=== PATIENT | male | born 1990 | race Two or more races ===

== ENCOUNTER 2020-02-14 21:19 | Emergency (ER) | payer OTHER ==
--- NOTE | 2020-02-14 22:02 | ER Document Report ---
HPI - HPI Patient complains to provider of: Shortness of breath Time Seen by Provider: 02/14/20 21:35 Onset: This afternoon Onset/Duration: Sudden Quality of pain: No pain Pain Level: Denies Context: 29-year-old male with no prior history presents emergency department with complaints of feeling short of breath. Patient reports he has had 2 episodes of shortness of breath in the past month. He reports he had been exercising both times. The first time he was exercising. The second time, today, he was jogging. Denies chest pain. Reports some left lower rib pain that went away. He reports he feels like he is still a little short of breath. Denies fever vomiting diarrhea. Reports [place] Denies COVID exposure. Denies recent trip. Denies history of CAD,PE or DVTs. Reports even though he felt short of breath while running today he did not stop he kept running. Denies family history of CAD. Associated Symptoms: Shortness of breath Exacerbated by: Other - exercising Similar symptoms previously: No Recently seen / treated by doctor: No Past Medical History - General Information source: Patient - Social History Smoking Status: Never Smoker Chew tobacco use (# tins/day): No Smoking Education Provided: No Frequency of alcohol use: Social Drug Abuse: None Occupation: CONTRACTOR Family History: None. denies: CAD Patient has suicidal ideation: No Patient has homicidal ideation: No - Medical History Medical History: Negative Surgical Hx: Negative Vertical Provider Document - CONSTITUTIONAL Agree With Documented VS: Yes Exam Limitations: No Limitations General Appearance: WD/WN, No Apparent Distress - HEENT HEENT: Atraumatic, Normocephalic - NECK Neck: Normal Inspection, Supple - RESPIRATORY Respiratory: Breath Sounds Normal, No Respiratory Distress - CARDIOVASCULAR Cardiovascular: Regular Rate, Regular Rhythm - GI/ABDOMEN Gastrointestinal: Abdomen Soft, Abdomen Non-Tender - MUSCULOSKELETAL/EXTREMETIES Musculoskeletal/Extremeties: TOO LUNDY - NEURO Level of Consciousness: Awake, Alert, Appropriate Motor/Sensory: No Motor Deficit - DERM Integumentary: Warm, Dry Course - Re-evaluation Re-evalutation: 02/14/20 22:01 29-year-old male presents with complaints of feeling short of breath with exercising. He denies chest pain. Denies covert exposure. Denies fever vomiting diarrhea. Patient is talking in a clear voice, respiratory rate even unlabored no retractions. - Vital Signs Vital signs: Temp Pulse Resp BP Pulse Ox 98.7 F 108 H 20 161/90 H 97 02/14/20 21:49 02/14/20 21:30 02/14/20 21:30 02/14/20 21:30 02/14/20 21:30 Discharge - Discharge Clinical Impression: Shortness of breath Condition: Stable Disposition: HOME, SELF-CARE Instructions: Family Physicians / Practices Additional Instructions: *You have been evaluated for shortness of breath *Monitor your symptoms *Follow up with a primary care provider within 1 week for recheck *Return to ED for difficulty breathing, chest pain, worsening symptoms, concerns Monitor your blood pressure. Your blood pressure was elevated today. This may be because you were anxious, in pain or because you need medication. It is important to follow up with your primary care provider for full evaluation. Forms: Elevated Blood Pressure
--- NOTE | 2020-02-14 23:20 | RADIOLOGY REPORT (SQ) ---
XR CHEST 1 VIEW EXAM DATE: 02/14/2020 9:50 PM CDT HISTORY: Shortness of breath. COMPARISON: None. FINDINGS: The heart size is within normal limits. There is no pulmonary vascular congestion. No consolidation, pleural effusion, or pneumothorax is seen. The bony structures are intact. IMPRESSION: No evidence of acute cardiopulmonary disease.
--- NOTE | 2020-02-14 23:32 | ER Document Report ---
ED Medical Screen (RME) - General Chief Complaint: Shortness Of Breath Stated Complaint: SHORTNESS OF BREATH Time Seen by Provider: 02/14/20 21:35 Mode of Arrival: Ambulatory Information source: Patient Notes: 29-year-old male with no prior history presents emergency department with complaints of feeling short of breath. Patient reports he has had 2 episodes of shortness of breath in the past month. He reports he had been exercising both times. The first time he was exercising. The second time, today, he was jogging. Denies chest pain. Reports some left lower rib pain that went away. He reports he feels like he is still a little short of breath. Denies fever vomiting diarrhea. Reports he works as a [place]. Denies COVID exposure. Denies recent trip. Denies history of CAD,PE or DVTs. Reports even though he felt short of breath while running today he did not stop he kept running. Denies family history of CAD. Patient ambulated without any problems. EKG shows sinus rhythm left fascicular block. Discussed with Dr. beatty who advised labs d-dimer CK troponin. Patient updated on plan of care. I have greeted and performed a rapid initial assessment of this patient. A comprehensive ED assessment and evaluation of the patient, analysis of test results and completion of the medical decision making process will be conducted by additional ED providers. - Related Data Allergies/Adverse Reactions: No Known Allergies Allergy (Unverified 02/14/20 22:07) Past Medical History - Social History Chew tobacco use (# tins/day): No Frequency of alcohol use: Social Drug Abuse: None Surgical Hx: Negative Past Surgical History: Reports: Hx Tonsillectomy Physical Exam - Vital signs Vitals: Temp Pulse Resp BP Pulse Ox 98.2 F 108 H 20 161/90 H 97 02/14/20 21:30 02/14/20 21:30 02/14/20 21:30 02/14/20 21:30 02/14/20 21:30 Course - Vital Signs Vital signs: Temp Pulse Resp BP Pulse Ox 98.7 F 108 H 20 161/90 H 97 02/14/20 21:49 02/14/20 21:30 02/14/20 21:30 02/14/20 21:30 02/14/20 21:30 Doctor's Discharge - Discharge Clinical Impression: Shortness of breath Condition: Stable Disposition: HOME, SELF-CARE Instructions: Family Physicians / Practices Additional Instructions: *You have been evaluated for shortness of breath *Monitor your symptoms *Follow up with a primary care provider within 1 week for recheck *Return to ED for difficulty breathing, chest pain, worsening symptoms, concerns Monitor your blood pressure. Your blood pressure was elevated today. This may be because you were anxious, in pain or because you need medication. It is important to follow up with your primary care provider for full evaluation. Forms: Elevated Blood Pressure
[2020-02-14 23:54] LABS: ABSOLUTE BASOPHILS # (AUTO) 0.1 10^3/uL (0.0-0.2); ABSOLUTE EOSINOPHILS # (AUTO) 0.1 10^3/uL (0.0-0.6); ABSOLUTE LYMPHOCYTES (AUTO) 2.3 10^3/uL (0.5-4.7); ABSOLUTE MONOCYTES (AUTO) 0.6 10^3/uL (0.1-1.4); ABSOLUTE NEUT (AUTO) 6.4 10^3/uL (1.7-8.2); BASOPHILS % (AUTO) 0.8 % (0-2); EOSINOPHILS % (AUTO) 0.6 % (0-6); HEMATOCRIT 46.8 % (37.9-51.0); HEMOGLOBIN 16.5 g/dL (13.5-17.0); LYMPHOCYTES % (AUTO) 24.3 % (13-45); MEAN CORPUSCULAR HEMOGLOBIN 30.7 pg (27.0-33.4); MEAN CORPUSCULAR HGB CONC 35.3 g/dL (32.0-36.0); MEAN CORPUSCULAR VOLUME 87 fl (80-97); MONOCYTES % (AUTO) 6.7 % (3-13); PLATELET COUNT 281 10^3/uL (150-450); RED BLOOD COUNT 5.38 10^6/uL (4.35-5.55); RED CELL DISTRIBUTION WIDTH 13.4 % (11.5-14.0); SEGMENTED NEUTROPHILS % (AUTO) 67.6 % (42-78); TOTAL CELLS COUNTED % (AUTO) 100 %; WHITE BLOOD COUNT 9.5 10^3/uL (4.0-10.5)
[2020-02-14 23:58] LABS: APPEARANCE,URINE CLEAR; BILIRUBIN,URINE NEGATIVE (NEGATIVE); COLOR,URINE YELLOW; GLUCOSE, URINE NEGATIVE (NEGATIVE); KETONES,URINE NEGATIVE (NEGATIVE); LEUKOCYTE ESTERASE,URINE NEGATIVE (NEGATIVE); NITRITE,URINE NEGATIVE (NEGATIVE); PROTEIN,URINE NEGATIVE (NEGATIVE); URINE SPECIFIC GRAVITY 1.016; UROBILINOGEN,URINE NEGATIVE mg/dL (<2.0)
[2020-02-15 00:11] LABS: URINE AMPHETAMINES SCREEN NEGATIVE; URINE BARBITURATES SCREEN NEGATIVE; URINE BENZODIAZEPINES SCREEN NEGATIVE; URINE COCAINE SCREEN NEGATIVE; URINE MARIJUANA (THC) SCREEN NEGATIVE; URINE METHADONE SCREEN NEGATIVE; URINE PHENCYCLIDINE SCREEN NEGATIVE
[2020-02-15 00:13] LABS: ALKALINE PHOSPHATASE 81 U/L (38-126); ANION GAP 8 (5-19); ASPARTATE AMINO TRANSFERASE 41 U/L (17-59); BILIRUBIN,TOTAL 0.5 mg/dL (0.2-1.3); BLOOD UREA NITROGEN 16 mg/dL (7-20); CALCIUM 10.2 mg/dL (8.4-10.2); CARBON DIOXIDE 29 mmol/L (22-30); CHLORIDE 99 mmol/L (98-107); CREATINE KINASE 266 U/L (55-170); GLUCOSE 114 mg/dL (75-110); POTASSIUM 4.8 mmol/L (3.6-5.0); TOTAL PROTEIN 8.5 g/dL (6.3-8.2)
--- NOTE | 2020-02-15 00:30 | ER Document Report ---
ED General - General Chief Complaint: Shortness Of Breath Stated Complaint: SHORTNESS OF BREATH Time Seen by Provider: 02/14/20 21:35 Mode of Arrival: Ambulatory Notes: Patient is a 29-year-old male that comes emergency department for chief complaint of sensation of difficulty breathing. He states that he has had 2 se parate episodes of this over the past several weeks, both times were when he was exercising. He states that he was actually jogging when he felt the sensation earlier. He states he also felt some discomfort in his left lower rib area that resolved. He states he still intermittently feels slightly short of breath although he denies shortness of breath on my evaluation. He denies any current chest pain. Symptoms happened earlier in the afternoon. Patient denies dizziness, nausea, vomiting, cough, congestion, sore throat, fever, recent travel or surgery, recent sick contacts. He denies personal or family history other than being told on previous family care visit that he had elevated blood pressure. Patient also states that he is trying to lose weight, he does have some obesity. He denies smoking, recreational drugs, or any daily medications. - Related Data Allergies/Adverse Reactions: No Known Allergies Allergy (Unverified 02/14/20 22:07) Past Medical History - General Information source: Patient - Social History Smoking Status: Never Smoker Chew tobacco use (# tins/day): No Frequency of alcohol use: Social Drug Abuse: None Lives with: Family Family History: Reviewed & Not Pertinent Patient has homicidal ideation: No Surgical Hx: Negative Past Surgical History: Reports: Hx Tonsillectomy - Immunizations Hx Diphtheria, Pertussis, Tetanus Vaccination: Yes Physical Exam - Vital signs Vitals: Temp Pulse Resp BP Pulse Ox 98.2 F 108 H 20 161/90 H 97 02/14/20 21:30 02/14/20 21:30 02/14/20 21:30 02/14/20 21:30 02/14/20 21:30 Course - Re-evaluation Re-evalutation: On my exam patient has no symptoms. Symptoms have been going on intermittently and more than 8 hours ago at this time, troponin is negative, CBC unremarkable, chemistry nonspecific, d-dimer is negative. Urine and urine drug screen unremarkable. EKG does show left axis deviation, blood pressure is elevated here especially initially when patient was more anxious. Patient has never been on blood pressure medication and does not routinely check his blood pressure, he has no idea what is average blood pressure is. I have very low suspicion of ACS, heart score is less than 3. Patient states that he was very anxious and felt like he needed to get checked out, however he states that now he would like to be discharged. Patient states that he can follow-up with his primary care easily at any time, plan is for patient to check his blood pressure daily, record this, see primary care, he will be referred to cardiology, and he will return if he develops any concerning symptoms which were discussed. - Vital Signs Vital signs: Temp Pulse Resp BP Pulse Ox 98.2 F 72 16 143/94 H 97 02/15/20 01:40 02/15/20 01:40 02/15/20 01:40 02/15/20 01:40 02/15/20 01:40 - Laboratory Result Diagrams: 02/14/20 23:45 02/14/20 23:45 Laboratory results interpreted by me: 02/14/20 23:45 Sodium 136.4 L Glucose 114 H ALT 65 H Creatine Kinase 266 H Total Protein 8.5 H - EKG Interpretation by Me Additional EKG results interpreted by me: EKG shows sinus rhythm at a rate of 91. Left ventricular hypertrophy, borderline T wave in lead III, no T wave inversions or ST segment changes in consecutive leads. QTC of 429. Discharge - Discharge Clinical Impression: Shortness of breath Condition: Stable Disposition: HOME, SELF-CARE Additional Instructions: Your evaluation today is reassuring in regards to heart, lungs, and general work-up. Your blood pressure is elevated, this very likely will require treatment, the recommendation is that you check your blood pressure twice a day for 1 week, record these blood pressures, follow-up with your primary care with these numbers for treatment of your blood pressure. Also see the cardiology referral because of your symptoms for additional follow- up for possible Holter monitor. Come back if you worsen including developing chest pain, severe headache, vomiting, difficulty breathing, fever, passing out, or any other concerning symptoms. Forms: Elevated Blood Pressure Referrals: BRET GOODE MD [ACTIVE STAFF] - Follow up in 1 week
[2020-02-15 01:50] VITALS: BP 143/94
--- NOTE | 2020-02-15 06:58 | EKG REPORT ---
SEVERITY:- ABNORMAL ECG - SINUS RHYTHM PROBABLE LEFT ATRIAL ABNORMALITY LEFT ANTERIOR FASCICULAR BLOCK PROBABLE LEFT VENTRICULAR HYPERTROPHY : Confirmed by: Arjun Kellogg MD 15-Feb-2020 06:57:28
== END 2020-02-15 01:43 | disposition home or self-care (01) ==
LOC: ER 21:19
DX: R06.02 Shortness of breath (principal); R07.81 Pleurodynia
CPT/HCPCS: 36415; 71045; 80053; 80307; 81001; 82550; 84484; 85025; 85379; 93005; 93010; 99285